=== PATIENT | female | born 1990 | race Caucasian/White ===

== ENCOUNTER → 2024-06-03 14:32 | Outpatient (REF) | payer OTHER, SELFPAY | LOC: HWEVLT 14:32 | PROVIDERS: ATTENDING PHYSICIAN Radiology Vascular & Interventional Radiology | DX: I83.893 Varicose veins of bilateral lower extremities with other complications (principal) | CPT/HCPCS: 93970 ==

== ENCOUNTER 2024-07-02 18:57 | Emergency (ER) | payer OTHER, SELFPAY ==
[2024-07-02] VITALS (7 sets, daily range): BP systolic 90–138; BP diastolic 60–87; BMI 31.8
[2024-07-02 19:18] LABS: Glucose - Point of Care 93 mg/dl (70-99)
--- NOTE | 2024-07-02 19:49 | ED.GENMED ---
History of Present Illness
General
Chief Complaint: Visual Problem
Time Seen by Provider: 07/02/24 19:16
History of Present Illness
History of Present Illness:
34-year-old female without significant past medical history presenting to the emergency department with concern for a visual abnormality. Patient reports at 5:30 PM, she started to have visual issues. Reports particularly visual issues with the
left eye, however also notes the right eye. Notes that the vision was obscured particularly in the lateral and peripheral gan. She described it as a wavy abnormality. Symptoms lasted about 45 minutes and have since resolved. She called her
primary care doctor who advised that she come to the hospital for further evaluation. Now is reporting some occipital headache. Reports preceding symptoms, she was having a stressful event at work. Denies numbness or tingling to her extremities.
Denies chest pain or difficulty breathing. Denies weakness. Denies any history of stroke. She is not on any exogenous estrogen. Denies history of migraines. Denies additional acute medical complaints
Phy Exam
Physical Exam
Physical Exam:
General: Well-appearing, no clinical signs of dehydration, nontoxic and in no acute distress
HEENT: protecting airway
Neck: appears supple
CV: Normal heart rate, regular rhythm, no evidence of cyanosis
Resp: No accessory muscle use, no increased work of breathing, lungs clear to auscultation bilaterally
Abd: Soft and non-distended, no tenderness to palpation
Extremities: No deformities, no swelling
Neuro: alert, no focal neurologic deficit
: deferred
Rectal: deferred
Psych: Normal affect
Skin: Intact
NIH Stroke Score
Level of Consciousness: 0 - Alert
LOC questions: 0-Answers both correctly
LOC Commands: 0-Performs both correctly
Best Gaze: 0-Normal
Visual Gan: 0=Normal, no visual loss
Facial palsy: 0=Normal, symmetrical
Motor - Right Arm: 0=No drift 10 seconds
Motor - Left Arm: 0=No drift 10 seconds
Motor - Right Le-No drift 5 seconds
Motor - Left Le-No drift 5 seconds
Limb Ataxia: 0-Absent
Sensation: 0-Normal
Best Language: 0-No aphasia
Dysarthria: 0-Normal
Extinction and Inattention: 0-No abnormality
Total Score:: 0
Course
Orders/Labs/Results
Orders:
Orders
07/02/24 19:18
EKG [Electrocardiogram (*1)] Urgent
Reason for Study: Other
Other Reason for Exam: stroke alert
EKG- Treatment ONCE
07/02/24 19:19
CT HEAD STROKE ALERT W/o Cont Stat
Comment:
Reason For Exam: cva/tia symptoms
07/02/24 19:24
, Urine Qualitative Screen [HCG, Urine Qualitative Screen] Urgent
Date Specimen was Collected: 07/02/24
Time Specimen was Collected: 20:56
07/02/24 19:25
Urinalysis Reflex To Culture Urgent
Date Specimen was Collected: 07/02/24
Time Specimen was Collected: 20:57
Test Result ONCE
07/02/24 19:47
CBC/With Diff [Complete Blood Count/With Diff] Urgent
CMP [Comprehensive Metabolic Panel] Urgent
07/02/24 19:59
0.9% Sodium Chloride 1000 ml [Nss] 1,000 ml IV BOLUS
Ketorolac [Toradol] 15 mg IV NOW STA
Abnormal Lab Results
07/02/24
19:47
MCV 78.3 L fL
(81.0-99.0)
Carbon Dioxide 21 L mmol/L
(22-30)
BUN 21 H mg/dl
(7-17)
Total Bilirubin 1.6 H mg/dl
(0.2-1.3)
07/02/24 19:47
07/02/24 19:47
Vital Signs
Initial and Last Documented VS:
Initial Vital Signs
Temp Pulse Resp BP Pulse Ox
98.8 F 87 14 134/74 100
07/02/24 19:14 07/02/24 19:14 07/02/24 19:14 07/02/24 19:14 07/02/24 19:14
Last Documented Vital Signs
Temp Pulse Resp BP Pulse Ox
98.8 F 87 14 134/74 100
07/02/24 19:14 07/02/24 19:14 07/02/24 19:14 07/02/24 19:14 07/02/24 19:14
MDM/Problems Addressed
MDM/Problems Addressed:
34-year-old female presenting to the emergency department with visual changes that started about an hour and a half prior to arrival. Vital signs on arrival are normal.
On exam patient is well-appearing, no acute distress or discomfort. Patient was made a stroke alert by nursing staff in triage. Patient immediately assessed. Notes that her symptoms have since resolved, NIH stroke scale of 0. Lower suspicion for
acute CVA, possible ocular migraine versus stress-induced symptoms. Plan for laboratory analysis, CT imaging, neurology consultation.
19:30 - Did discuss with neurology, no indication for tPA at this time. Also suspects possible ocular migraine.
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 Will continue to monitor in the emergency department, pending laboratory analysis.
21:30 -patient reporting improvement after medications for headache. At this time feel stable for discharge. Plan for outpatient neurology follow-up. Return precautions discussed with patient verbalized understanding
*EKG
Interpreted by ED Provider?: Yes
EKG Intrepretation Date: 07/02/24
EKG Intrepretation Time: 19:56
Interpretation: normal
Comparison EKG: no changes
Heart Rate: 89
Rate: normal
Rhythm: sinus
Inman: normal axis
Interval: normal interval
QRS Pattern: normal QRS
Ischemia: no ischemia
*Critical Care Note
Total Time (30-74mins, 75-104mins- exclusive of procedures): Not Applicable
ED Attending Note
-
Portions of this chart may have been created with voice recognition software.� Occasional wrong word or��sound alike� substitutions may have occurred due to the inherent limitations of voice recognition software.
Discharge Plan
Departure
Prescriptions:
No Action
Theragen Tablet
1 tab PO DAILYPRN PRN (Reason: supplement)
Interventions
Interventions:
*Risk Screen - Suicide Last Done: 07/02/24 19:14
*General Assessment Last Done: 07/02/24 19:14
Discharge Date and Time
Print Language: [id number]
[2024-07-02 20:06] LABS: % Basophils 0.5 % (0-2); % Eosinophils 0.7 % (0-6); % Immature Granulocytes 0.1 % (0-0.5); % Lymphocytes 22.8 % (20.5-51.1); % Monocytes 6.3 % (1.7-9.3); % Neutrophils 69.6 % (42.2-75.2); Absolute Eosinophils 0.1 10^3/uL (0-0.7); Absolute Lymphocytes 1.9 10^3/uL (1.2-3.4); Absolute Monocytes 0.5 10^3/uL (0.1-0.6); Absolute Neutrophils 5.8 10^3/uL (1.4-6.5); Hematocrit 40.5 % (37.0-47.0); Hemoglobin 14.3 g/dL (12.0-16.0); Mean Corp Hgb Conc. 35.3 g/dL (33.0-37.0); Mean Corpuscular Hgb 27.7 pg (27.0-31.0); Mean Corpuscular Volume 78.3 fL (81.0-99.0); Mean Platelet Volume 9.9 fL (7.4-10.4); Nucleated Red Blood Cells % 0 %; Platelet Count 252 10^3/uL (130-400); Red Blood Cell Count 5.17 10^6/uL (4.20-5.40); Red Cell Dist. Width 13.6 % (11.5-14.5); White Blood Cell Count 8.4 10^3/uL (4.8-10.8)
[2024-07-02 20:22] LABS: ALT (SGPT) 25 U/L (0-35); AST (SGOT) 20 U/L (14-36); Albumin 4.8 g/dl (3.5-5.0); Alkaline Phosphatase 50 U/L (38-126); Blood Urea Nitrogen 21 mg/dl (7-17); Calcium 9.5 mg/dl (8.4-10.2); Carbon Dioxide 21 mmol/L (22-30); Chloride 104 mmol/L (98-107); Estimated Creatinine Clearance 117 ml/min; Glucose 96 mg/dl (70-99); Potassium 3.9 mmol/L (3.5-5.1); Sodium 139 mmol/L (135-145); Total Bilirubin 1.6 mg/dl (0.2-1.3); Total Protein 7.5 g/dl (6.3-8.2); eGFR > 60.00
[2024-07-02] MEDS: TORADOL 15 MG IV (20:36)
[2024-07-02] MEDS: NSS 1000 IV (20:39)
[2024-07-02 21:36] LABS: Urine Albumin Negative (Neg - Trace); Urine Bilirubin Negative (Negative); Urine Character Clear (Clear); Urine Color Yellow; Urine Glucose Negative (Negative); Urine Ketone Trace (Negative); Urine Leukocyte Negative (Negative); Urine Nitrite Negative (Negative); Urine Occult Blood Negative (Negative); Urine Specific Gravity 1.015 (<1.030); Urine Urobilinogen Negative (Neg - 1+); Urine pH 6.5 (5.0-9.0)
[2024-07-02 21:38] LABS: HCG, Urine Qualitative Screen Negative
== END 2024-07-02 21:59 | disposition home or self-care (01) ==
LOC: EMR 18:57
PROVIDERS: EMERGENCY PHYSICIAN Student in an Organized Health Care Education/Training Program; FAMILY PHYSICIAN Physician Assistant Medical
DX: G43.B0 Ophthalmoplegic migraine, not intractable (principal)
CPT/HCPCS: 99284; 96374; 70450; 80053; 81003; 81025; 82962; 85025; 93005

== ENCOUNTER → 2024-12-30 13:24 | Outpatient (REF) | payer OTHER, SELFPAY | LOC: PNTC 13:24 | PROVIDERS: ATTENDING PHYSICIAN Obstetrics & Gynecology | DX: O36.80X0 Pregnancy with inconclusive fetal viability, not applicable or unspecified (principal) | CPT/HCPCS: 76801 ==

== ENCOUNTER → 2025-01-26 10:32 | Outpatient (REF) | payer OTHER, SELFPAY | LOC: PNTC 10:32 | PROVIDERS: ATTENDING PHYSICIAN Obstetrics & Gynecology | DX: Z36.0 Encounter for antenatal screening for chromosomal anomalies (principal); Z36.82 Encounter for antenatal screening for nuchal translucency | CPT/HCPCS: 76801; 76813 ==

== ENCOUNTER → 2025-02-22 13:38 | Outpatient (REF) | payer OTHER, SELFPAY | LOC: PNTC 13:38 | PROVIDERS: ATTENDING PHYSICIAN Student in an Organized Health Care Education/Training Program | DX: O42.919 Preterm premature rupture of membranes, unspecified as to length of time between rupture and onset of labor, unspecified trimester (principal) | CPT/HCPCS: 76805; 76817 ==

== ENCOUNTER → 2025-03-22 13:43 | Outpatient (REF) | payer OTHER, SELFPAY | LOC: PNTC 13:43 | PROVIDERS: ATTENDING PHYSICIAN Obstetrics & Gynecology | DX: O42.919 Preterm premature rupture of membranes, unspecified as to length of time between rupture and onset of labor, unspecified trimester (principal) | CPT/HCPCS: 76811; 76817 ==

== ENCOUNTER → 2025-06-15 11:59 | Outpatient (REF) | payer OTHER, SELFPAY | LOC: PNTC 11:59 | PROVIDERS: ATTENDING PHYSICIAN Obstetrics & Gynecology | DX: Z34.90 Encounter for supervision of normal pregnancy, unspecified, unspecified trimester (principal) | CPT/HCPCS: 76816 ==

== ENCOUNTER 2025-08-11 00:41 | Inpatient (IN) | payer OTHER, SELFPAY ==
[2025-08-11 00:53] VITALS: BMI 38.4
[2025-08-11 01:12] VITALS: BP 115/64
[2025-08-11 01:56] LABS: Hematocrit 32.1 % (37.0-47.0); Hemoglobin 10.8 g/dL (12.0-16.0); Mean Corp Hgb Conc. 33.6 g/dL (33.0-37.0); Mean Corpuscular Volume 80.7 fL (81.0-99.0); Nucleated Red Blood Cells % 0 %; Platelet Count 210 10^3/uL (130-400); Red Cell Dist. Width 13.3 % (11.5-14.5)
[2025-08-11] MEDS: PITOCIN 30 UNITS/NSS 500 ML IV (08:35)
[2025-08-11] MEDS: LR 1000 IV (08:35)
[2025-08-11] MEDS: FENTANYL/BUPIVACAINE 100 EPIDURAL (13:36)
[2025-08-11] MEDS: SUBLIMAZE 100 MCG EPIDURAL (13:36)
[2025-08-11] MEDS: TYLENOL 650 MG PO (19:50)
[2025-08-11] MEDS: MOTRIN 600 MG PO (19:50)
[2025-08-11] MEDS: COLACE 100 MG PO (19:50)
[2025-08-12] MEDS: TYLENOL 650 MG PO ×4 (03:47→23:47)
[2025-08-12] MEDS: MOTRIN 600 MG PO ×4 (03:47→23:47)
[2025-08-12 06:26] LABS: Hematocrit 30.6 % (37.0-47.0); Hemoglobin 10.2 g/dL (12.0-16.0)
[2025-08-12] MEDS: COLACE 100 MG PO ×2 (08:34→19:49)
[2025-08-12] MEDS: PRENATAL PLUS 1 TABLET PO (08:34)
[2025-08-13] MEDS: TYLENOL 650 MG PO ×2 (06:17→12:36)
[2025-08-13] MEDS: MOTRIN 600 MG PO ×2 (06:18→12:36)
[2025-08-13] MEDS: COLACE 100 MG PO (08:14)
[2025-08-13] MEDS: PRENATAL PLUS 1 TABLET PO (08:14)
[2025-08-13 13:43] LABS: Syphilis/T. pallidum Ab Reflex Negative (Negative)
== END 2025-08-13 13:38 | disposition home or self-care (01) | DRG 807 ==
LOC: LDRP 00:41
PROVIDERS: Obstetrics & Gynecology; ADMITTING PHYSICIAN Obstetrics & Gynecology
PROC: 10907ZC Drainage of Amniotic Fluid, Therapeutic from Products of Conception, Via Natural or Artificial Opening (ICD-10-PCS; 2025-08-11)
PROC: 0KQM0ZZ Repair Perineum Muscle, Open Approach (ICD-10-PCS; 2025-08-11)
PROC: 10E0XZZ Delivery of Products of Conception, External Approach (ICD-10-PCS; 2025-08-11)
DX: O48.0 Post-term pregnancy (principal); Z37.0 Single live birth; Z3A.40 40 weeks gestation of pregnancy; O70.1 Second degree perineal laceration during delivery
CPT/HCPCS: 85014; 85018; 85025; 86780; 86850; 86900; 86901

== ENCOUNTER → 2025-08-18 10:29 | Outpatient (REF) | payer OTHER, SELFPAY | LOC: RAD 10:29 | PROVIDERS: ATTENDING PHYSICIAN Obstetrics & Gynecology; FAMILY PHYSICIAN Physician Assistant Medical | DX: I87.2 Venous insufficiency (chronic) (peripheral) (principal) | CPT/HCPCS: 93970 ==